=== PATIENT | female | born 1980 | race Caucasian/White ===

== ENCOUNTER 2024-06-17 20:06 | Inpatient (IN) ==
[2024-06-17 20:48] LABS: Appearance Urine Clear (Clear); Bacteria Urine Automated 2+ (None Seen); Bilirubin Urine Negative (Negative); Blood Urine Negative (Negative); Cast Urine Automated 0-2 /lpf (0-2); Color Urine Yellow; Glucose Urine UA Negative (Negative); Ketones Urine Negative (Negative); Leukocyte Esterase Urine 2+ (Negative); Nitrite Urine Negative (Negative); Protein Urine Negative (Negative); RBC Urine Automated 0-2 /hpf (0-2); Specific Gravity Urine 1.008 (1.000-1.030); Urobilinogen Urine Negative (Negative); WBC Urine Automated 21-50 /hpf (0-5)
[2024-06-17 20:50] LABS: Basophils # (auto) 0.07 K/uL (0.00-0.20); Eosinophils # (auto) 0.09 K/uL (0.00-0.50); Eosinophils % (auto) 1.3 %; Hematocrit (blood only) 36.7 % (37.0-47.0); Immature Granulocytes # (auto) 0.02 K/uL (0.01-0.20); Immature Granulocytes % (auto) 0.3 %; Lymphocytes # (auto) 2.22 K/uL (1.20-3.40); Lymphocytes % (auto) 32.5 %; Mean Corpuscular Hemoglobin 24.9 pg (25.0-34.0); Mean Corpuscular Hgb Conc 32.7 g/dL (32.0-36.0); Mean Corpuscular Volume 76.1 fL (80.0-100.0); Mean Platelet Volume 11.4 fL (9.4-12.4); Monocytes # (auto) 0.64 K/uL (0.11-0.59); Monocytes % (auto) 9.4 %; Neutrophils % (auto) 55.5 %; Platelet Count 234 K/uL (130-400); RDW Coefficient of Variation 14.6 % (11.5-14.5); RDW Standard Deviation 39.9 fL (36.4-46.3); Red Blood Count 4.82 M/uL (4.20-5.40); White Blood Count 6.84 K/ul (4.8-10.8)
--- NOTE | 2024-06-17 20:51 | Emergency Department Note ---
Impression & Plan Delusions, Acute UTI (urinary tract infection) ED Provider Note HISTORY OF PRESENT ILLNESS: Patient is a 43-year-old female presenting for mental health evaluation. Patient presents under 302 warrant. 302 was petitioned by one of the workers at the [facility] psychiatric unit. They state that the patient had called their facility and seem to be rambling and delusional. They had expressed passive suicidality stating that "they would not be around come June." On arrival to the ER, the patient does lack any sort of insight into why she is here and what is going on. She states that her parents 3 years ago and "I do not have anyone and I just want family." When asked about suicidal or homicidal ideation, she again repeats "I am all alone." She has very tangential thinking and is difficult to redirect. ROS: as above PHYSICAL EXAM: Constitutional: Patient appears in no acute distress. HENT: Head: Normocephalic and atraumatic. Eyes: EOMI, PERRL Mouth/Throat: Mucous membranes moist. Neck: Trachea midline. Neck supple. Musculoskeletal: No edema, tenderness or deformity noted. Skin: Warm and dry. No rash, erythema, pallor or cyanosis Psychiatric: Patient appears well groomed. Makes fair eye contact. Speech is normal volume and rate. Thought process is tangential and difficult to redirect. Neurological: Alert. CN II-XII grossly intact, moving all extremities equally and fully. MDM: - Vitals signs showed tachycardia. - History obtained via patient and 302 warrant. History as above. -After evaluating the patient, I did uphold the 302 warrant. She seems to lack insight into her medical condition at this time and makes passive threats about not being here after June. - Chronic conditions affecting care: Delusions - Differential diagnoses include, but are not limited to: Alcohol intoxication; drug intoxication; acute delusions; psychosis; UTI; electrolyte abnormality - External medical records reviewed. - Laboratory workup interpreted by myself showed normal WBC; stable electrolytes; negative hCG; normal TSH; negative alcohol/acetaminophen/salicylate levels - UA shows evidence of infection. Patient given 500 mg p.o. Keflex. She will need a continuation of Keflex 500 mg twice daily for the next 7 days. - COVID negative - UDS negative - Patient medically cleared. Bed search in process for inpatient psychiatric placement. - Patient was excepted to inpatient [facility] psychiatric unit, [address] [place] [address], for further evaluation and management. ASSESSMENT AND PLAN: Diagnosis: delusions; acute UTI Plan: admit to [address] [place] [address] Past Med/Surg History Problem List (Updated 06/17/24 @ 22:09 by Sylvia Rodriguez MD) Acute UTI (urinary tract infection) (Acute) Delusions (Acute) UTI (urinary tract infection) (Acute) Anxiety with depression (Acute) Insomnia (Acute) Tension headache (Acute) Social History Smoking Status: Never smoker Feels Safe at Home: Yes Gender Identity: Female Allergies Allergies Allergy/AdvReac Type Severity Reaction Status Date / Time No Known Allergies Allergy Verified 06/06/24 22:38 Home Meds Home Medications Medication Instructions Recorded Confirmed gabapentin 100 mg capsule 100 mg PO TID 06/17/24 06/17/24 hydroxyzine HCl 50 mg tablet 50 mg PO QID PRN Anxiety 06/17/24 06/17/24 lurasidone 20 mg tablet 20 mg PO PM 06/17/24 06/17/24 trazodone 50 mg tablet 50 mg PO HS PRN Insomnia 06/17/24 06/17/24 Results & Data (ED) Vital Signs Vital Signs - 24 hr 06/17/24 20:08 06/17/24 22:50 Temperature 37.2 C Temperature Source Oral Pulse Rate 91 H 74 Respiratory Rate 18 17 Respiratory Effort / Characteristics Non-Labored Respiratory Depth Normal Respiratory Pattern Regular Blood Pressure 130/82 128/80 Blood Pressure Mean 98 Blood Pressure Position Sitting Pulse Oximetry 98 97 Oxygen Delivery Method Room Air Room Air Sepsis Recent Fever Within 48 Hours No Sepsis New/Unexplained Change in Mental Status No Sepsis Action Taken by Nursing No Action Required Laboratory Data 06/17/24 20:27 06/17/24 20:27 Lab Results 06/17/24 Range/Units 20:27 WBC 6.84 (4.8-10.8) K/ul RBC 4.82 (4.20-5.40) M/uL Hgb 12.0 (12.0-16.0) g/dl Hct 36.7 L (37.0-47.0) % MCV 76.1 L (80.0-100.0) fL MCH 24.9 L (25.0-34.0) pg MCHC 32.7 (32.0-36.0) g/dL RDW Std Deviation 39.9 (36.4-46.3) fL RDW Coeff of Iveth 14.6 H (11.5-14.5) % Plt Count 234 (130-400) K/uL MPV 11.4 (9.4-12.4) fL Immature Gran % (Auto) 0.3 % Neut % (Auto) 55.5 % Lymph % (Auto) 32.5 % Gosper % (Auto) 9.4 % Eos % (Auto) 1.3 % Baso % (Auto) 1.0 % Neut # (Auto) 3.80 (1.40-6.50) K/uL Lymph # (Auto) 2.22 (1.20-3.40) K/uL Gosper # (Auto) 0.64 H (0.11-0.59) K/uL Eos # (Auto) 0.09 (0.00-0.50) K/uL Baso # (Auto) 0.07 (0.00-0.20) K/uL Immature Gran # (Auto) 0.02 (0.01-0.20) K/uL Sodium 139 (136-145) mmol/L Potassium 3.7 (3.5-5.1) mmol/L Chloride 104 (98-107) mmol/L Carbon Dioxide 29 (21-32) mmol/L Anion Gap 6 (3-11) BUN 11 (6-23) mg/dl Creatinine 0.63 (0.6-1.2) mg/dl Est Cr Clr Drug Dosing 127.4 ml/min eGFR 112.11 BUN/Creatinine Ratio 17.5 (10-20) Glucose 88 (70-99(Fasting)) mg/dl Calcium 9.6 (8.6-10.3) mg/dl Total Bilirubin 0.6 (0.2-1.0) mg/dl AST 18 (13-39) U/L ALT 18 (7-52) U/L Alkaline Phosphatase 47 (34-104) U/L Total Protein 8.0 (6.0-8.3) gm/dl Albumin 4.5 (3.4-5.0) gm/dl Globulin 3.5 (2.5-4.0) gm/dl Albumin/Globulin Ratio 1.3 (0.9-2) TSH 3.830 (0.300-4.500) uIu/ml HCG, Qual Negative (Negative) Urine Color Yellow Urine Appearance Clear (Clear) Urine pH 6.0 (4.5-7.5) Ur Specific Pierson 1.008 (1.000-1.030) Urine Protein Negative (Negative) Urine Glucose (UA) Negative (Negative) Urine Ketones Negative (Negative) Urine Blood Negative (Negative) Urine Nitrite Negative (Negative) Urine Bilirubin Negative (Negative) Urine Urobilinogen Negative (Negative) Ur Leukocyte Esterase 2+ H (Negative) Urine WBC (Auto) 21-50 H (0-5) /hpf Urine RBC (Auto) 0-2 (0-2) /hpf U Hyaline Cast (Auto) 0-2 (0-2) /lpf U Epithel Cells (Auto) 3-5 H (0-2) /hpf Urine Bacteria (Auto) 2+ H (None Seen) Salicylates < 3.0 L (3.0-30) mg/dl Urine Opiates Screen Neg (Neg) Ur Methadone, Qual Neg (Neg) Urine Fentanyl Screen Neg (Neg) Acetaminophen < 3 L (10-30) ug/ml Urine Barbiturates Neg (Neg) Ur Phencyclidine (PCP) Neg (Neg) U Amphetamin/Meth Scrn Neg (Neg) MDMA (Ecstasy) Screen Neg (Neg) U Benzodiazepines Scrn Neg (Neg) Ur Cocaine Metabolite Neg (Neg) U Marijuana (THC) Screen Neg (Neg) Ethyl Alcohol mg/dL < 10.0 (<10.0) mg/dl SARS-CoV-2, RNA, NAAT NEGATIVE (NEGATIVE) Administered Medications Discontinued Medications Cephalexin HCl (Cephalexin 250 Mg Cap) 500 mg PO NOW ONE Stop: 06/17/24 22:06 Last Admin: 06/17/24 22:41 Dose: 500 mg Documented By: KMS Discharge Plan Visit Data Chief Complaint: Mental Health Evaluation Stated Complaint: [facility] ED Provider: Sylvia Rodriguez Discharge Problem: Delusions, Acute UTI (urinary tract infection) Patient Disposition: Admitted As Inpatient Discharge Instructions Interventions: ED Discharge Assessment Last Done: 06/17/24 22:50 Forms Stand Alone Forms: My [facility], Suicide Prevention Resources Prescriptions Prescriptions: No Action gabapentin 100 mg Capsule 100 mg PO TID hydroxyzine HCl 50 mg Tablet 50 mg PO QID PRN (Reason: Anxiety) lurasidone 20 mg Tablet 20 mg PO PM Rx Instructions: must administer with food (at least 350 calories) trazodone 50 mg Tablet 50 mg PO HS PRN (Reason: Insomnia) Referrals Referrals: Robert Nolan MD [Primary Care Provider] -
[2024-06-17 20:58] LABS: Pregnancy Test, Serum Negative (Negative)
[2024-06-17 21:04] LABS: Albumin Globulin Ratio 1.3 (0.9-2); Albumin Level 4.5 gm/dl (3.4-5.0); BUN Creatinine Ratio 17.5 (10-20); Bilirubin,Total 0.6 mg/dl (0.2-1.0); Calcium 9.6 mg/dl (8.6-10.3); Creatinine Clr Calc Pharmacy 127.4 ml/min; Globulin 3.5 gm/dl (2.5-4.0); Potassium 3.7 mmol/L (3.5-5.1)
[2024-06-17 21:17] LABS: Acetaminophen < 3 ug/ml (10-30); Amphetamines+Metham, Urine Neg (Neg); Barbiturates, Urine Neg (Neg); Benzodiazepine, Urine Neg (Neg); Cocaine, Urine Neg (Neg); Fentanyl, Urine Neg (Neg); MDMA (Ecstacy), Urine Neg (Neg); Marijuana, Urine Neg (Neg); Methadone, Urine Neg (Neg); Opiate, Urine Neg (Neg); Phencyclidine, Urine Neg (Neg); Salicylate < 3.0 mg/dl (3.0-30)
[2024-06-17 21:18] LABS: Thyroid Stimulating Hormone 3.83 uIu/ml (0.300-4.500)
[2024-06-17] MEDS: cephALEXin 250 MG CAP PO ONE (22:41)
[2024-06-17] MEDS ORDERED: SODIUM CHLORIDE 0.65% NA SOLN 45 ML (OCEAN) PRN (23:06)
[2024-06-17] MEDS ORDERED: hydrOXYzine HCl 25 MG TAB PO PRN (23:06)
[2024-06-17] MEDS ORDERED: ACETAMINOPHEN 325 MG TAB PO PRN (23:06)
[2024-06-17] MEDS ORDERED: MAGNESIUM HYDROXIDE SUSP 30 ML UDC PO PRN (23:06)
[2024-06-17] MEDS ORDERED: ALUMINUM/MAGNESIUM SUSP 30 ML UDC PO PRN (23:06)
[2024-06-17] MEDS ORDERED: BISMUTH SUBSALICYLATE 262 MG CHEW PO PRN (23:06)
[2024-06-17] MEDS ORDERED: LORazepam 1 MG TAB PO PRN (23:10)
[2024-06-17] MEDS: OLANZapine 5 MG TABLET PO STA (23:28)
[2024-06-17] MEDS: hydrOXYzine HCl 25 MG TAB PO PRN (23:30)
[2024-06-18] MEDS: OLANZapine ZYDIS 5 MG ORALLY DIS. TAB PO SCH (09:43)
[2024-06-18] MEDS: cephALEXin 500 MG CAP PO SCH (09:43)
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
[2024-06-18] MEDS: ARIPiprazole 15 MG TAB PO SCH (12:07)
[2024-06-18] MEDS ORDERED: OLANZapine ZYDIS 5 MG ORALLY DIS. TAB PO PRN (12:55)
[2024-06-18] MEDS: LORazepam 1 MG TAB PO SCH (21:03)
[2024-06-19] MEDS ORDERED: ONDANSETRON 4 MG OD TAB PO PRN (11:47)
--- NOTE | 2024-06-19 14:39 | Psychiatric Progress Note ---
Date of Service June 19, 2024 Impression / Recommendations Impression Sruthi Anaya is a 43-year-old white female domiciled by self h/o bipolar 1 disorder who was brought in by police on a 302 warrant for making passive suicidal statements to an outside facility. Presented a disorganized and tangential though process, memory impairments, passive suicidal ideation, persecutory delusions. She was admitted on 06/17/24 23:01 on a 302 involuntary commitment for psychosis, markos. Presentation consistent with bipolar 1 disorder, mixed episode versus schizoaffective disorder bipolar type, body dysmorphia, uncomplicated UTI. Patient presents with decreased need for sleep, tangential and disorganized thought process with perseveration and flight of ideas, persecutory delusions, suicidal ideation. Chart review indicates historical bipolar diagnosis with past psychiatric hospitalization and stabilization on Abilify 25 mg daily. Concern for poor medication adherence and poor insight into her condition. A: Patient is tolerating Abilify well and we will plan to increase dose. Start trazodone for sleep. Patient continues to have excessive speech and is restless however improved from yesterday. Continues to perseverate about lack of community support and magnified feelings of misfortune and poor circumstance. Denies dysuria or pain on urination. Educated about benefits of long-acting injections and contemplative to start Abilify maintena. Patient denying UTI symptoms and concern for nausea s/e from antibiotic treatment; will limit treatment course to 3 full days. Overall, I spent a total of 40 minutes with this case including review of chart records, nursing report, review of lab work, direct evaluation of the patient at bedside, counseling the patient, multidisciplinary team meeting, orders, and documentation in the electronic health record. (1) Delusions: (2) Anxiety: (3) Insomnia: (4) Bipolar 1 disorder, mixed, severe: (5) Body dysmorphic disorder: (6) UTI (urinary tract infection): Plan 06/19/2024: Increase Abilify to 20 mg daily. Start trazodone 50 mg at bedtime. Fasting lipid profile and HgbA1C tomorrow AM. 06/18/2024:The patient was admitted to the [facility] ([facility]) on q15 min checks (behavioral with suicide precautions) for safety. The patient will participate in group, recreational, and milieu therapies and will be offered additional individual and family sessions as clinically appropriate. Continue Keflex 500 mg twice daily for 7 days Start aripiprazole 15 mg daily Start lorazepam 2 mg at bedtime Olanzapine 5 mg ODT every 6 hours as needed for agitation and lorazepam 1 mg p.o. 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 Presented a disorganized and tangential though process, memory impairments, passive suicidal ideation, persecutory delusions. She was admitted on 06/17/24 23:01 on a 302 involuntary commitment for psychosis, markos. Chief Complaint "Okay" Review of Systems Sleep Information Total Hours of Sleep: 7.5 Meal Information Percent Meal Consumed - Breakfast: 75 Percent Meal Consumed - Lunch: 100 Percent Meal Consumed - Dinner: 100 Subjective Subjective Patient was seen & assessed and interval progress reviewed with treatment team nursing and social work Nursing reports overnight patient has been disorganized with pressured speech. Unable to tolerate groups. Slept 7.5 hours. Patient's friend is taking care of her dog. Took a shower. Patient is worried about her dog but reports that her friend from the [employer] is helping her. She reports feeling rested. Tolerating Abilify well. Reports having recent bad luck and perseverates on this. Says the holidays are difficult because she does not have much family and parents are . Says groups have been helpful. Says that she was depressed in her 20s and then her mother had a traumatic fall and complications which she later from. Reports last psychiatric hospitalization went well and that her anxiety was more controlled by discharge. She denies SI and HI. Physical Exam Mental Examination Appearance: Unkempt Eye Contact: Fleeting Contact (direct at times) Motor Behavior: Restless Speech: Excessive, Repetitive and Perseverating Mood: Euthymic Affect: Congruent and Constricted Thought Process: Circumstantial, Disorganized and Perseveration Thought Content: Goal Oriented, Obsessional Thoughts and Preoccupation (focused on body perception, need for supports) Hallucinations: None Insight: Poor Judgement: Poor Vital Signs (Past 24 Hours) Last Vital Signs Temp 36.8 C 06/19/24 06:48 Pulse 87 06/19/24 06:49 Resp 16 06/19/24 06:48 BP 114/80 06/19/24 06:49 Pulse Ox 98 06/17/24 23:43 O2 Del Method Room Air 06/17/24 23:43 Results & Data ([facility]) Current Inpatient Medications Current Inpatient Medications: Current Inpatient Medications Acetaminophen (Acetaminophen 325 Mg Tab) 650 mg PO Q4H PRN PRN Reason: Headache or Minor Fever Stop: 07/17/24 23:05 Al Hydrox/Mg Hydrox/Simethicone (Aluminum/Magnesium Susp 30 Ml Udc) 30 ml PO Q4H PRN PRN Reason: GI Upset Stop: 07/17/24 23:05 Aripiprazole (Aripiprazole 10 Mg Tab) 20 mg PO DAILY LUANA Stop: 07/20/24 08:59 Bismuth Subsalicylate (Bismuth Subsalicylate 262 Mg Chew) 2 tab PO Q30M PRN PRN Reason: Loose Stool/Diarrhea Stop: 07/17/24 23:05 Cephalexin HCl (Cephalexin 500 Mg Cap) 500 mg PO BID LUANA; Protocol Stop: 06/20/24 20:59 Last Admin: 06/19/24 09:10 Dose: 500 mg Hydroxyzine HCl (Hydroxyzine Hcl 25 Mg Tab) 50 mg PO HSZ PRN PRN Reason: Insomnia Stop: 07/17/24 23:05 Last Admin: 06/17/24 23:30 Dose: 50 mg Hydroxyzine HCl (Hydroxyzine Hcl 25 Mg Tab) 25 mg PO Q4H PRN PRN Reason: Anxiety Stop: 07/17/24 23:05 Lorazepam (Lorazepam 1 Mg Tab) 1 mg PO Q6 PRN PRN Reason: Anxiety Stop: 07/17/24 23:09 Lorazepam (Lorazepam 1 Mg Tab) 2 mg PO HS LUANA Stop: 07/18/24 21:59 Last Admin: 06/18/24 21:03 Dose: 2 mg Magnesium Hydroxide (Magnesium Hydroxide Susp 30 Ml Udc) 30 ml PO DAILY PRN PRN Reason: Constipation Stop: 07/17/24 23:05 Olanzapine (Olanzapine Zydis 5 Mg Orally Dis. Tab) 5 mg PO Q6H PRN PRN Reason: agitation Stop: 07/18/24 08:59 Ondansetron HCl (Ondansetron 4 Mg Od Tab) 4 mg PO Q8H PRN PRN Reason: Nausea Stop: 07/19/24 11:46 Sodium Chloride (Sodium Chloride 0.65% Na Soln 45 Ml ([place])) 1 - 2 sprays NA PRN PRN PRN Reason: Nasal Dryness/Congestion Stop: 07/17/24 23:05 Trazodone HCl (Trazodone Hcl 50 Mg Tab) 50 mg PO HS LUANA Stop: 07/19/24 21:59 Mental Health & Subst Abuse Tx Psychiatrist Name of Psychiatrist: [facility] Comment: Psychiatry appt will be scheduled after intake is completed on 06/23 Therapist Name of Therapist: Denice therapist Lizzette (intake) Therapist's Date of Therapist Appointment: 06/23/24 - Sunday Time of Therapist Appointment: 11AM Therapy Appointment Comment: In person - [id number] [facility] [id number] Post Discharge Appointments Primary Care Physician Name Of Family Doctor/PCP: Dr. Robert Haider Partial or Psych Rehab Name of Partial or Psych Rehab: Crisis airborne and air delivery specialist Phone Number of Partial or Psych Rehab: [phone] Partial or Psych Rehab Appointment Comment: emergency medicine specialist will contact you for scheduling post discharge (3) Insomnia Insomnia type: unspecified Qualified Code(s): G47.00 - Insomnia, unspecified (6) UTI (urinary tract infection) Hematuria presence: without hematuria Urinary tract infection type: site unspecified Qualified Code(s): N39.0 - Urinary tract infection, site not specified
[2024-06-19] MEDS: traZODone HCL 50 MG TAB PO SCH (21:09)
[2024-06-20 09:04] LABS: Chol HDL Ratio 2.5 (0-5)
[2024-06-20] MEDS: ARIPiprazole 10 MG TAB PO SCH (09:07)
[2024-06-20 10:00] LABS: Estimated Average Glucose 108 mg/dl; Hemoglobin A1C 5.4 % (4.5-5.6)
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
[2024-06-20] MEDS: LORazepam 0.5 MG TAB PO PRN (18:25)
[2024-06-20] MEDS: LORazepam 1 MG TAB PO SCH (21:07)
--- NOTE | 2024-06-21 09:30 | Psychiatric Progress Note ---
Date of Service June 21, 2024 Impression / Recommendations Impression Sruthi Anaya is a 43-year-old white female domiciled by self h/o bipolar 1 disorder who was brought in by police on a 302 warrant for making passive suicidal statements to an outside facility. Presented a disorganized and tangential though process, memory impairments, passive suicidal ideation, persecutory delusions. She was admitted on 06/17/24 23:01 on a 302 involuntary commitment for psychosis, markos. Presentation consistent with bipolar 1 disorder, mixed episode versus schizoaffective disorder bipolar type, body dysmorphia, uncomplicated UTI. Patient presents with decreased need for sleep, tangential and disorganized thought process with perseveration and flight of ideas, persecutory delusions, suicidal ideation. Chart review indicates historical bipolar diagnosis with past psychiatric hospitalization and stabilization on Abilify 25 mg daily. Concern for poor medication adherence and poor insight into her condition. A:Markos lessening, slept well overnight and tolerating medications well. Circumstantial thought process and speech is slightly fast but not pressured, no evidence for psychomotor activation, delusions, grandiosity or paranoia. She declines option for [facility]NA[facility] but is agreeable to continuing with abilify po. Agree with previous provider that she will not meet 303 criteria and thus will be discharged tomorrow prior to 302 expiring, she declines option for further voluntary treatment, desires to get back to her home and to be with her dog and she has had only acquaintances caring for her dog. Overall, I spent a total of 45 minutes on this case including meeting with the patient, reviewing the chart, nursing report, multidisciplinary team meeting, orders, and documentation.. (1) Bipolar 1 disorder, mixed, severe: (2) Anxiety: (3) Body dysmorphic disorder: Plan 06/21/2024: Continue with current medications and tx plan. 06/20/2024: Decrease lorazepam to 1 mg at bedtime. 06/19/2024: Increase Abilify to 20 mg daily. Start trazodone 50 mg at bedtime. Fasting lipid profile and HgbA1C tomorrow AM. 06/18/2024:The patient was admitted to the [facility] ([facility] mental [facility] unit) on q15 min checks (behavioral with suicide precautions) for safety. The patient will participate in group, recreational, and milieu therapies and will be offered additional individual and family sessions as clinically appropri ate. Continue Keflex 500 mg twice daily for 7 days Start aripiprazole 15 mg daily Start lorazepam 2 mg at bedtime Olanzapine 5 mg ODT every 6 hours as needed for agitation and lorazepam 1 mg p.o. every 6 hours for anxiety Inventory Assets Strengths: independent, assertive Needs: medication adherence, improved insight Suicide Risk Level Suicide Risk Level: Moderate (q15 min suicide checks) (mixed mood episode but denies SI and future focused, feels safe in the hospital and feels able to ask for support ) Risk Factors Assessment Male: No : Yes Do You Have Access To A Gun?: No Health Problems: No Mental Health Diagnoses: Yes Substance Use Disorders: No Previous Attempt: No Family History of Suicide: No Previous Psychiatric Hospitalization: Yes Hopelessness: No Protective Factors Assessment Spiritism Beliefs: No : No Responsible for Young Children: No 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 Presented a disorganized and tangential though process, memory impairments, passive suicidal ideation, persecutory delusions. She was admitted on 06/17/24 23:01 on a 302 involuntary commitment for psychosis, markos. Chief Complaint "I want to work on building realEnforcer eCoachinghips". Review of Systems Sleep Information Total Hours of Sleep: 8 Sleep Comments: HS Ativan and Trazadone Meal Information Percent Meal Consumed - Breakfast: 90 Percent Meal Consumed - Lunch: 100 Percent Meal Consumed - Dinner: 75 Subjective Subjective Patient was seen & assessed and interval progress reviewed with treatment team nursing and social work. Sleeping well, 8 hours last night. Attending groups, attending to all self-care needs, eating well.Still circumstantial at times. Reports mood as stable today, planning to take a shower. Plans to meet with crisis peer support today. Eager to get back home to see her dog, wants to leave tomorrow. Sleeping well and denies any medication side effects, reviewed potential for metabolic side effects with Abilify as she recalled having some bloating in the past. She wonders about ways to increase happiness, reviewed PERMA and provided with resource about this, discussed gratitude and CBT cycle. Physical Exam Psychiatric Orientation: alert and oriented x 3 Apperance: appropriately dressed and appropriately groomed Eye Contact: good eye contact Motor Behavior: no abnormal motor movements Speech: no pressured speech, no loud speech and + abnormal rate/rhythm/volume of speech (slightly fast) Affect: euthymic affect Mood: + depressed mood; no anxious mood Thought Process: + circumstantial thought process Thought Content: reality based without delusions Suicidal Thoughts: denies suicidal thoughts Homicidal Thoughts: denies homicidal thoughts Hallucinations: no auditory hallucinations and no visual hallucinations Insight: + fair insight Judgment: + fair judgement Vital Signs (Past 24 Hours) Last Vital Signs Temp 37.0 C 06/21/24 06:54 Pulse 90 06/21/24 06:54 Resp 16 06/21/24 06:54 BP 119/82 06/21/24 06:56 Pulse Ox 98 06/21/24 06:54 O2 Del Method Room Air 06/21/24 06:54 Results & Data ([facility]) Laboratory Results Laboratory Results - last 24 hr 06/20/24 08:30 Estimat Average Glucose 108 Hemoglobin A1c 5.4 Current Inpatient Medications Current Inpatient Medications: Current Inpatient Medications Acetaminophen (Acetaminophen 325 Mg Tab) 650 mg PO Q4H PRN PRN Reason: Headache or Minor Fever Stop: 07/17/24 23:05 Al Hydrox/Mg Hydrox/Simethicone (Aluminum/Magnesium Susp 30 Ml Udc) 30 ml PO Q4H PRN PRN Reason: GI Upset Stop: 07/17/24 23:05 Aripiprazole (Aripiprazole 10 Mg Tab) 20 mg PO DAILY LUANA Stop: 07/20/24 08:59 Last Admin: 06/21/24 08:54 Dose: 20 mg Bismuth Subsalicylate (Bismuth Subsalicylate 262 Mg Chew) 2 tab PO Q30M PRN PRN Reason: Loose Stool/Diarrhea Stop: 07/17/24 23:05 Hydroxyzine HCl (Hydroxyzine Hcl 25 Mg Tab) 50 mg PO HSZ PRN PRN Reason: Insomnia Stop: 07/17/24 23:05 Last Admin: 06/17/24 23:30 Dose: 50 mg Hydroxyzine HCl (Hydroxyzine Hcl 25 Mg Tab) 25 mg PO Q4H PRN PRN Reason: Anxiety Stop: 07/17/24 23:05 Lorazepam (Lorazepam 1 Mg Tab) 1 mg PO HS LUANA Stop: 07/20/24 21:59 Last Admin: 06/20/24 21:07 Dose: 1 mg Lorazepam (Lorazepam 0.5 Mg Tab) 0.5 mg PO Q6 PRN PRN Reason: Anxiety Stop: 07/17/24 23:09 Last Admin: 06/20/24 18:25 Dose: 0.5 mg Magnesium Hydroxide (Magnesium Hydroxide Susp 30 Ml Udc) 30 ml PO DAILY PRN PRN Reason: Constipation Stop: 07/17/24 23:05 Olanzapine (Olanzapine Zydis 5 Mg Orally Dis. Tab) 5 mg PO Q6H PRN PRN Reason: agitation Stop: 07/18/24 08:59 Ondansetron HCl (Ondansetron 4 Mg Od Tab) 4 mg PO Q8H PRN PRN Reason: Nausea Stop: 07/19/24 11:46 Sodium Chloride (Sodium Chloride 0.65% Na Soln 45 Ml ([place])) 1 - 2 sprays NA PRN PRN PRN Reason: Nasal Dryness/Congestion Stop: 07/17/24 23:05 Trazodone HCl (Trazodone Hcl 50 Mg Tab) 50 mg PO HS LUANA Stop: 07/19/24 21:59 Last Admin: 06/20/24 21:07 Dose: 50 mg Mental Health & Subst Abuse Tx Psychiatrist Name of Psychiatrist: [facility] Comment: Psychiatry appt will be scheduled after intake is completed on 06/23 Therapist Name of Therapist: Denice therapist Lizzette (intake) Therapist's Date of Therapist Appointment: 06/23/24 - Sunday Time of Therapist Appointment: 11AM Therapy Appointment Comment: In person - [id number] [facility] [address] Post Discharge Appointments Primary Care Physician Name Of Family Doctor/PCP: Dr. Robert Haider Partial or Psych Rehab Name of Partial or Psych Rehab: Crisis water pollution specialist Phone Number of Partial or Psych Rehab: [phone] Partial or Psych Rehab Appointment Comment: surgical instrument repair specialist will contact you for scheduling post discharge
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
== END 2024-06-22 11:50 | disposition home or self-care (01) | DRG 885 ==
LOC: ED 20:06 → 3S 22:50

== ENCOUNTER 2024-08-26 14:21 | Inpatient (IN) ==
[2024-08-26 14:53] LABS: Appearance Urine Clear (Clear); Bacteria Urine Automated None Seen (None Seen); Bilirubin Urine Negative (Negative); Blood Urine Negative (Negative); Cast Urine Automated 0-2 /lpf (0-2); Color Urine Yellow; Epithelial Cell Urine Auto 0-2 /hpf (0-2); Glucose Urine UA Negative (Negative); Ketones Urine Negative (Negative); Leukocyte Esterase Urine Trace (Negative); Nitrite Urine Negative (Negative); Protein Urine Negative (Negative); RBC Urine Automated 0-2 /hpf (0-2); Specific Gravity Urine 1.006 (1.000-1.030); Urobilinogen Urine Negative (Negative); WBC Urine Automated 0-5 /hpf (0-5); pH Urine 5.5 (4.5-7.5)
[2024-08-26 14:57] LABS: Basophils # (auto) 0.05 K/uL (0.00-0.20); Basophils % (auto) 0.7 %; Eosinophils # (auto) 0.07 K/uL (0.00-0.50); Hematocrit (blood only) 37.9 % (37.0-47.0); Hemoglobin 12.6 g/dl (12.0-16.0); Immature Granulocytes # (auto) 0.02 K/uL (0.01-0.20); Immature Granulocytes % (auto) 0.3 %; Lymphocytes # (auto) 1.65 K/uL (1.20-3.40); Lymphocytes % (auto) 23.6 %; Mean Corpuscular Hemoglobin 25.5 pg (25.0-34.0); Mean Corpuscular Hgb Conc 33.2 g/dL (32.0-36.0); Mean Corpuscular Volume 76.7 fL (80.0-100.0); Mean Platelet Volume 11.3 fL (9.4-12.4); Monocytes # (auto) 0.65 K/uL (0.11-0.59); Monocytes % (auto) 9.3 %; Neutrophils # (auto) 4.54 K/uL (1.40-6.50); Neutrophils % (auto) 65.1 %; Platelet Count 273 K/uL (130-400); RDW Standard Deviation 41.9 fL (36.4-46.3); Red Blood Count 4.94 M/uL (4.20-5.40); White Blood Count 6.98 K/ul (4.8-10.8)
[2024-08-26 15:15] LABS: Alanine Aminotransferase 38 U/L (7-52); Albumin Globulin Ratio 1.5 (0.9-2); Albumin Level 4.6 gm/dl (3.4-5.0); Alkaline Phosphatase 47 U/L (34-104); Anion Gap 8 (3-11); Aspartate Aminotransferase 34 U/L (13-39); Bilirubin,Total 0.4 mg/dl (0.2-1.0); Blood Urea Nitrogen 13 mg/dl (6-23); Calcium 9.2 mg/dl (8.6-10.3); Carbon Dioxide 26 mmol/L (21-32); Chloride 101 mmol/L (98-107); Glucose 81 mg/dl (70-99(Fasting)); Potassium 3.6 mmol/L (3.5-5.1); Sodium 135 mmol/L (136-145); Total Protein 7.6 gm/dl (6.0-8.3)
[2024-08-26 15:30] LABS: Thyroid Stimulating Hormone 1.978 uIu/ml (0.300-4.500)
[2024-08-26 15:51] LABS: Acetaminophen < 3 ug/ml (10-30); Salicylate < 3.0 mg/dl (3.0-30)
[2024-08-26 15:57] LABS: Amphetamines+Metham, Urine Neg (Neg); Barbiturates, Urine Neg (Neg); Benzodiazepine, Urine Neg (Neg); Cocaine, Urine Neg (Neg); Fentanyl, Urine Neg (Neg); MDMA (Ecstacy), Urine Neg (Neg); Marijuana, Urine Neg (Neg); Methadone, Urine Neg (Neg); Opiate, Urine Neg (Neg); Phencyclidine, Urine Neg (Neg)
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
[2024-08-26] MEDS ORDERED: SODIUM CHLORIDE 0.65% NA SOLN 45 ML (OCEAN) PRN (18:16)
[2024-08-26] MEDS ORDERED: MAGNESIUM HYDROXIDE SUSP 30 ML UDC PO PRN (18:16)
[2024-08-26] MEDS ORDERED: hydrOXYzine HCl 25 MG TAB PO PRN ×2 (18:16)
[2024-08-26] MEDS ORDERED: ALUMINUM/MAGNESIUM SUSP 30 ML UDC PO PRN (18:16)
[2024-08-26] MEDS ORDERED: BISMUTH SUBSALICYLATE 262 MG CHEW PO PRN (18:16)
[2024-08-26] MEDS ORDERED: LORazepam 1 MG TAB PO PRN (19:59)
[2024-08-26] MEDS ORDERED: OLANZapine ZYDIS 5 MG ORALLY DIS. TAB PO PRN (19:59)
[2024-08-26] MEDS: traZODone HCL 50 MG TAB PO SCH (21:14)
[2024-08-27] MEDS: lamoTRIgine 25 MG TAB PO SCH (15:21)
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
[2024-08-27] MEDS: ACETAMINOPHEN 325 MG TAB PO PRN (17:55)
[2024-08-27] MEDS: cloNIDine HCL 0.1 MG TAB PO SCH (21:06)
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
--- NOTE | 2024-08-30 10:17 | Psychiatric Progress Note ---
Date of Service August 30, 2024 Impression / Recommendations Impression 44-year-old woman with extensive psychiatric history significant for multiple lifetime traumas. Onset of mental health symptoms in her early - mid 20s, with historic diagnoses including Schizoaffective Disorder, Bipolar type vs, Bipolar Disorder vs , depression. Academic and early work history significant for excellent performance despite turbulent childhood, but patient has struggled to find and retain employment commensurate with her ability and education since her mid-late 20s. Other diagnoses include OCD, ASD. Since her early 40s, she has had over 30 hospitalizations typically presenting with worsening depression and suicidal ideation in the context of unresolved grief and loss regarding parents' deaths and being forced from family home. Describes an "incredibly bad life" since mother's passing 3 years ago and attributes mental decline to mistreatment by others and lack of social support. She reports past arrest being an added stressor although charges were dismissed. Patient lives alone, works as a home health aide, and is socially isolated. She expresses a strong desire for a and family as a way to provide life meaning and stability. Diagnostically consistent with unspecified mood disorder with differential including Schizoaffective Disorder Bipolar Type current depressive episode/mixed episode vs Bipolar Disorder vs MDD with Psychosis vs. Complicated bereavement. Significant lifetime trauma, although not currently meeting criteria for PTSD. By history, Autistic disorder (high-functioning Autism/Asperger's). By history, ADHD, OCD, Body Dysmorphic Disorder. A: Mood improving, though still focused at times on ongoing stressors. Processed ways she can try to increase her support network and establish more meaningful social connections. Tolerating medications without side effects. Continues to deny SI. Plan for discharge tomorrow before 302 expires, she is declining to sign in for any additional voluntary treatment, doesn't meet 303 criteria as denies SI/HI and no evidence for psychosis at this point. Overall, I spent a total of 35 minutes on this case including meeting with the patient, reviewing the chart, nursing report, multidisciplinary team meeting, orders, and documentation. (1) Bipolar 1 disorder, mixed, severe: (2) Anxiety: (3) Autism spectrum disorder: Plan 08/30/2024: -Continue current medications and tx plan. 08/29/24: Continue current medication at current doses. Continue to monitor for rash. ELOS 2-4 days. 08/28/24: Continue current medication: Olanzapine 10mg qhs, Lamictal 25mg daily, Clonidine 0.1mg bid for ADHD, impulsivity. 08/27/24: The patient was admitted to the [facility] ([facility]) on q15 min checks (behavioral with suicide precautions) for safety. The patient will participate in group, recreational, and milieu therapies and will be offered additional individual and family sessions as clinically appropriate. Medications: Increase olanzapine to 10mg qhs, Trazodone 50mg qhs. Discussed medication treatment options in detail. Discussed risks, benefits and alternatives. Patient would like to start and consented to Lamictal for mood stabilization. Reviewed side effects including but not limited to Lanier- Schuyler' syndrome, ataxia, diplopia, headaches etc. Start Lamictal 25mg daily for mood stabilization.Pt does not recall prior trials of this medication. Does not recall trials of Depakote, [place]. Hold fluoxetine 60mg daily, Mirtazapine 15mg qhs given history of mood cycling. Continue clonidine 0.1mg and increase to bid for presumed ADHD, impulsivity. Reviewed information from recent treating providers and past records Encourage participation in unit groups and individual therapy to process grief/loss Assess interest in pursuing psychological testing as outpatient to clarify diagnosis Provide resources for social activities, volunteering to facilitate community engagement. Suicide Risk Level Suicide Risk Level: Moderate (q15 min suicide checks) (SI prior to admission but now reports improvement in mood, denies SI, future-focused ) Risk Factors Assessment Male: No : Yes Do You Have Access To A Gun?: No Mental Health Diagnoses: Yes Substance Use Disorders: No Previous Attempt: No Family History of Suicide: Yes Previous Psychiatric Hospitalization: Yes Hopelessness: No Protective Factors Assessment Pent[employer]al Beliefs: No : No Responsible for Young Children: No Employed: Yes Stable Relationships: No Supportive Family: No Good Rapport with Provider: Yes Interval History Identifying Information 44-year-old woman with a history of trauma, bipolar/Schizoaffective disorder, body dysmorphic disorder and OCD (by history), with over 30 inpt psych hospitalizations presenting with worsening depression and suicidal ideation in the context of unresolved grief and loss regarding parents' deaths and being forced from family home. Chief Complaint "I need to find a ". Review of Systems Sleep Information Total Hours of Sleep: 8.75 Meal Information Percent Meal Consumed - Breakfast: 100 Percent Meal Consumed - Lunch: 90 Percent Meal Consumed - Dinner: 100 Subjective Subjective Patient was seen & assessed and interval progress reviewed with nursing. Sleeping well, attending groups, showered this morning. Discharge focused. Today continues to deny SI. Focused on challenges she's faced since of her mother and feels she has no good supports. Discussed ways she could try to increase her support network among her relatives and meeting new people. Discussed ways she has been trying to meet a romantic partner. Remains focused on desire to leave tomorrow so her dog doesn't have to remain at the [employer] office. She denies any medication issues. Physical Exam Psychiatric A+Ox3, euthymic affect Orientation: alert, oriented x 3 and cooperative Apperance: appropriately dressed, appropriately groomed and appeared stated age Eye Contact: good eye contact Motor Behavior: steady gait and station and no abnormal motor movements Speech: normal rate/rhythm/volume of speech Affect: + constricted affect Mood: + anxious mood Thought Process: + circumstantial thought process Thought Content: + preoccupation Suicidal Thoughts: denies suicidal thoughts, denies suicidal plan and denies suicidal intent Homicidal Thoughts: denies homicidal thoughts, denies homicidal plan and denies homicidal intent Cognition: recent memory grossly intact, remote memory grossly intact and attention grossly intact Estimated Intelligence: consistent with education level Insight: + fair insight Judgment: + limited judgement Vital Signs (Past 24 Hours) Last Vital Signs Temp 36.4 C 08/30/24 06:00 Pulse 83 08/30/24 06:16 Resp 17 08/30/24 06:00 BP 101/68 08/30/24 06:16 Pulse Ox 97 08/30/24 06:00 O2 Del Method Room Air 08/30/24 06:00 Results & Data ([facility]) Current Inpatient Medications Current Inpatient Medications: Current Inpatient Medications Acetaminophen (Acetaminophen 325 Mg Tab) 650 mg PO Q4H PRN PRN Reason: Headache or Minor Fever Stop: 09/25/24 18:15 Last Admin: 08/30/24 09:12 Dose: 650 mg Al Hydrox/Mg Hydrox/Simethicone (Aluminum/Magnesium Susp 30 Ml Udc) 30 ml PO Q4H PRN PRN Reason: GI Upset Stop: 09/25/24 18:15 Bismuth Subsalicylate (Bismuth Subsalicylate 262 Mg Chew) 2 tab PO Q30M PRN PRN Reason: Loose Stool/Diarrhea Stop: 09/25/24 18:15 Clonidine HCl (Clonidine Hcl 0.1 Mg Tab) 0.1 mg PO BID LUANA Stop: 09/26/24 20:59 Last Admin: 08/30/24 08:41 Dose: 0.1 mg Hydroxyzine HCl (Hydroxyzine Hcl 25 Mg Tab) 50 mg PO HSZ PRN PRN Reason: Insomnia Stop: 09/25/24 18:15 Hydroxyzine HCl (Hydroxyzine Hcl 25 Mg Tab) 25 mg PO Q4H PRN PRN Reason: Anxiety Stop: 09/25/24 18:15 Lamotrigine (Lamotrigine 25 Mg Tab) 25 mg PO QAM LUANA; Protocol Stop: 09/26/24 14:14 Last Admin: 08/30/24 08:40 Dose: 25 mg Lorazepam (Lorazepam 1 Mg Tab) 1 mg PO Q6 PRN PRN Reason: Anxiety Stop: 09/25/24 19:58 Magnesium Hydroxide (Magnesium Hydroxide Susp 30 Ml Udc) 30 ml PO DAILY PRN PRN Reason: Constipation Stop: 09/25/24 18:15 Olanzapine (Olanzapine Zydis 5 Mg Orally Dis. Tab) 5 mg PO Q6 PRN PRN Reason: Agitation Stop: 09/25/24 19:58 Olanzapine (Olanzapine Zydis 10 Mg Orally Dis. Tab) 10 mg PO HS LUANA Stop: 09/26/24 20:59 Last Admin: 08/29/24 21:15 Dose: 10 mg Sodium Chloride (Sodium Chloride 0.65% Na Soln 45 Ml ([place])) 1 - 2 sprays NA PRN PRN PRN Reason: Nasal Dryness/Congestion Stop: 09/25/24 18:15 Trazodone HCl (Trazodone Hcl 50 Mg Tab) 50 mg PO HS LUANA Stop: 09/25/24 21:59 Last Admin: 08/29/24 21:15 Dose: 50 mg Mental Health & Subst Abuse Tx Psychiatrist Name of Psychiatrist: Cam Levine Psychiatrist's Date Of Appointment With Psychiatric Provider: 09/09/24 Time of Appointment with Psychiatrist: 1:20 pm Therapist Name of Therapist: not established with anyone Therapist's Post Discharge Appointments Primary Care Physician Name Of Family Doctor/PCP: Robert Haider MD Primary Care Contact Information [place] Discharge [facility] [facility] [place] [facility] [address]
--- NOTE | 2024-08-31 09:03 | Discharge Summary ---
Date of Service August 31, 2024 History of Present Illness Background: 44-year-old female with history of bipolar disorder, possible OCD, ADHD, autism spectrum disorder, and depression. Lives alone in [place], [place]. Referred by outpatient psychiatrist on a 302 due to concerns about suicidal thoughts.She has had over 30 psychiatric admissions over the past 3 years, most recently to [facility] in June 2024. Last admission at this facility was 06/18-06/22/2024. Per her faxed records from [facility], she was seen there 08/21/24. Current meds are Clonidine 0.1mg qhs, Trazodone 100mg qhs, Prozav 60mg daily and Olanzapine 10mg qhs. She was recently on Abilify 25mg but this was recently cross-titrated with Olanzapine. 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 She endorses poor sleep, low energy, feelings of humiliation and shame related to conflicts with her mother's mcfp and being "wrongly arrested." She endorses chronic suicidal thoughts related to her desire for a , but denies prior attempts, acts in furtherance, plan or intent, stating "I just want my family back." She was very tangential and could not provide a detailed/coherent account of why she was sent in on a 302. She perseverated on "having money". Past Medical History: History of Ablation procedure on varicose veins in mid- 20s. Hymenectomy at age 22. A physical exam was performed in the ED for the purposes of medical clearance. I accept that physical as correct and adequate for the purposes of the inpatient physical exam. Lab findings remarkable for borderline low Na 135, Lipid profile wnl 07/03/24. Physical Exam Vital Signs (Past 24 Hours) Last Vital Signs Temp 36.9 C 08/31/24 08:49 Pulse 77 08/31/24 08:49 Resp 16 08/31/24 08:49 BP 92/57 L 08/31/24 08:49 Pulse Ox 98 08/31/24 08:49 O2 Del Method Room Air 08/31/24 06:00 Principal Diagnosis Bipolar Affective Disorder, mixed episode Psychiatric Data See daily stay summary. In short, patient was engaged with the social/therapeutic milieu of the unit, safety was maintained and the patient was cooperative with care. Medication changes included discontinuation of fluoxetine and mirtazapine due to mood cycling, initiation of lamictal 25mg daily for mood stabilization and increasing olanzapine and they tolerated this well. She was discharged just prior to the expiration of her 302 commitment, she was not felt to meet 303 commitment criteria. She declined a support session; safety plan was completed prior to discharge. They participated in safety planning and in discussions about ways to seek support and recognizing warning signs and utilizing coping skills. Reviewed ways to have their safety plan and contacts easily available should thoughts of SI re-emerge in the future. Reviewed importance of seeking emergency care should SI intensify, worsen or should they feel unsafe in the future which they agree to do. On the day of discharge they stated their mood was "[]" and remained future- oriented including [spending time with , relaxing] and engaging in aftercare appointments for psychiatry, therapy and [employer] student care and advocacy. They participated in safety planning and in discussions about ways to seek support and recognizing warning signs and utilizing coping skills. Reviewed ways to have their safety plan and contacts easily available should thoughts of SI re-emerge in the future. Reviewed importance of seeking emergency care should SI intensify, worsen or should they feel unsafe in the future which they agree to do. On the day of discharge they stated their mood was "good" and remained future-oriented including seeing her dog, trying to date and engaging in aftercare appointment for psychiatry. Day of Discharge Assessment Today the patient voices readiness for discharge. They note improvement in mood and anxiety. They deny thoughts of harm to self or others. Thoughts are organized and they are clinically improved from admission. There is no evidence of psychosis. They improved in the hospital with support and medication adjustments. They agree to take medications as prescribed and keep follow-up appointments. At the time of the discharge they are deemed to be stable and appropriate for outpatient level of care. They are not deemed to be at imminent risk of harm to self or others. They are aware of emergency and crisis services. Knows to call 911 or go to nearest emergency care center if in a crisis which cannot be handled as an outpatient. Suicide risk assessment: Acute risk is low given improvement in mood and denial of SI, lack of access to lethal means, hopefulness and improvement in psychosis. Chronic risk is moderate to high given some non-modifiable risk factors: psychiatric co-morbid diagnoses, periods of impulsivity, prior psychiatric hospitalizations, limited social support, mood disorder, childhood trauma but also with protective factors in cluding sense of responsibility to extended family, daughter and social supports, outpatient care in place, some positive coping skills, positive problem solving. Counseled on ways to reduce acute and chronic risk including engaging with outpatient providers, using safety plan if needed, utilizing supports, taking medication, and using coping skills. Modifiable risk factors of mood symptoms, SI and depression were addressed during hospitalization through development of new coping skills, safety planning, and medication adjustments. Discharge physical exam: See admission H&P, MSE per above and day of discharge summary. Overall, I spent a total of 35 minutes on this case including meeting with the patient, reviewing the chart, nursing report, multidisciplinary team meeting, discharge orders, anticipatory planning, safety planning, risk assessment and documentation. Transition of Care Transition Of Care Record: was reviewed with the patient Advance Directives Advance Directives Information Provided: Yes Advance Directives: No Mental Health Advance Directive: No Advance Directives on File: No Living Will: No Power of Director Orange: No Advance Directives Reason:: Declines as Mental Health Visit. Suicide Risk Level Suicide Risk Level Comments: Acute risk is low as denies SI, see further assessment above Risk Factors Assessment Male: No : Yes Do You Have Access To A Gun?: No Health Problems: No Mental Health Diagnoses: Yes Substance Use Disorders: No Previous Attempt: No Family History of Suicide: Yes Previous Psychiatric Hospitalization: Yes Hopelessness: No Protective Factors Assessment Hoahaoism Beliefs: No : No Responsible for Young Children: No Stable Relationships: No Supportive Family: No Good Rapport with Provider: Yes Discharge Data Lab Results 08/26/24 08/26/24 08/26/24 14:24 14:26 14:30 WBC 6.98 RBC 4.94 Hgb 12.6 Hct 37.9 MCV 76.7 L MCH 25.5 MCHC 33.2 RDW Std Deviation 41.9 RDW Coeff of Iveth 15.0 H Plt Count 273 MPV 11.3 Immature Gran % (Auto) 0.3 Neut % (Auto) 65.1 Lymph % (Auto) 23.6 [place] % (Auto) 9.3 Eos % (Auto) 1.0 Baso % (Auto) 0.7 Neut # (Auto) 4.54 Lymph # (Auto) 1.65 [place] # (Auto) 0.65 H Eos # (Auto) 0.07 Baso # (Auto) 0.05 Immature Gran # (Auto) 0.02 Sodium 135 L Potassium 3.6 Chloride 101 Carbon Dioxide 26 Anion Gap 8 BUN 13 Creatinine 0.81 Est Cr Clr Drug Dosing Not Reportable eGFR 91.17 BUN/Creatinine Ratio 16.0 Glucose 81 Calcium 9.2 Total Bilirubin 0.4 AST 34 ALT 38 Alkaline Phosphatase 47 Total Protein 7.6 Albumin 4.6 Globulin 3.0 Albumin/Globulin Ratio 1.5 TSH 1.978 Urine Color Yellow Urine Appearance Clear Urine pH 5.5 POC Urine pH Cancelled Ur Specific [place] 1.006 Urine Protein Negative POC Urine Protein Cancelled Urine Glucose (UA) Negative POC Ur Glucose (UA) Cancelled Urine Ketones Negative POC Urine Ketones Cancelled Urine Blood Negative POC Urine Blood Cancelled Urine Nitrite Negative POC Urine Nitrite Cancelled Urine Bilirubin Negative POC Urine Bilirubin Cancelled Urine Urobilinogen Negative POC Urine Urobilinogen Cancelled Ur Leukocyte Esterase Trace H POC U Leukocyte Esteras Cancelled Urine WBC (Auto) 0-5 Urine RBC (Auto) 0-2 U Hyaline Cast (Auto) 0-2 U Epithel Cells (Auto) 0-2 Urine Bacteria (Auto) None Seen POC Ur Test Cancelled Salicylates < 3.0 L Urine Opiates Screen Neg Ur Methadone, Qual Neg Urine Fentanyl Screen Neg Acetaminophen < 3 L Urine Barbiturates Neg Ur Phencyclidine (PCP) Neg U Amphetamin/Meth Scrn Neg MDMA (Ecstasy) Screen Neg U Benzodiazepines Scrn Neg Ur Cocaine Metabolite Neg U Marijuana (THC) Screen Neg Ethyl Alcohol mg/dL < 10.0 SARS-CoV-2, RNA, NAAT NEGATIVE Hospital Course (1) Bipolar 1 disorder, mixed, severe: (2) Anxiety: (3) Autism spectrum disorder: (4) Bipolar 1 disorder, mixed: (5) LUIS (generalized anxiety disorder): Plan 08/30/2024: -Continue current medications and tx plan. 08/29/24: Continue current medication at current doses. Continue to monitor for rash. ELOS 2-4 days. 08/28/24: Continue current medication: Olanzapine 10mg qhs, Lamictal 25mg daily, Clonidine 0.1mg bid for ADHD, impulsivity. 08/27/24: The patient was admitted to the [facility] ([facility] inpatient mental health unit) on q15 min checks (behavioral with suicide precautions) for safety. The patient will participate in group, recreational, and milieu therapies and will be offered additional individual and family sessions as clinically appropriate. Medications: Increase olanzapine to 10mg qhs, Trazodone 50mg qhs. Discussed medication treatment options in detail. Discussed risks, benefits and alternatives. Patient would like to start and consented to Lamictal for mood stabilization. Reviewed side effects including but not limited to Lanier- Schuyler' syndrome, ataxia, diplopia, headaches etc. Start Lamictal 25mg daily for mood stabilization.Pt does not recall prior trials of this medication. Does not recall trials of Depakote, Beatty. Hold fluoxetine 60mg daily, Mirtazapine 15mg qhs given history of mood cycling. Continue clonidine 0.1mg and increase to bid for presumed ADHD, impulsivity. Reviewed information from recent treating providers and past records Encourage participation in unit groups and individual therapy to process grief/loss Assess interest in pursuing psychological testing as outpatient to clarify diagnosis Provide resources for social activities, volunteering to facilitate community engagement. Mental Health & Subst Abuse Tx Psychiatrist Name of Psychiatrist: Cam Levine Psychiatrist's Date Of Appointment With Psychiatric Provider: 09/09/24 Time of Appointment with Psychiatrist: 1:20 pm Therapist Name of Therapist: not established with anyone Therapist's Post Discharge Appointments Primary Care Physician Name Of Family Doctor/PCP: Robert Haider MD Primary Care Contact Information Discharge Discharge Address: [address] [place] [id number] Discharge Plan Discharge Items Patient Disposition: Home - Self-Care Reason For Visit: UNSPECIFIED PSYCHOSIS Discharge Diagnosis: Bipolar Affective Disorder, mixed episode Activity: Resume your previous activity Non-emergency contact: Primary Care Provider and Psychiatrist Call non-emergency contact if: you have any medication questions and your symptoms worsen Follow-up/Referrals: Robert Nolan MD [Primary Care Provider] - Diet: Regular Addtl Attending Provider Instructions: SPECIAL CARE INSTRUCTIONS: 1. Follow through with your scheduled aftercare appointments. If unable to keep an appointment, please call to reschedule. 2. Take your medication only as prescribed. Medication should not be changed or stopped without the approval of your doctor. In the event of worsening symptoms or concerns about side effects, contact your doctor immediately. 3. Utilize new healthy coping skills, anger management skills, and stress management skills learned during your hospitalization. Journal feelings and process them with a support person. Identify stressors or situations that may result in relapse, deterioration or inappropriate behaviors and develop a plan to deal with those issues. 4. If your coping skills are ineffective and you are in crisis, contact your outpatient providers for direction. If unable to reach your providers, please call the [facility] CRISIS LINE AT , go to the [facility] walk-in center at [address] [place] [address] [address], [place], or go to the closest Emergency Room. 5. Avoid alcohol and un-prescribed drugs. 6. You have been provided with the Mental Health Advance Directives Pamphlet for your review. 7. Your condition is stable for discharge to outpatient level of care, but recovery is an ongoing process. Ifthoughts to harm yourself or others return, follow the safety plan developed during your stay. Planning for a safe return home includes securing weapons. Our treatment team recommends weaponsbe removed from the home until your outpatient provider reassesses your progress. In rare cases where the items themselvescannot be removed, guns and ammunitionshould be secured separatelyand keys stored by a reliable personoutside of the home. If you were admitted on an involuntary commitment, the police or other legal authorities may be involved in this process. AFTERCARE APPOINTMENTS: * Please call your insurance company prior to your scheduled appointment to confirm your aftercare providers are covered. Take your insurance information to your appointments. WHO TO CALL AND WHEN: Medical Emergencies: For questions or emergencies related to your hospital stay, please contact the Inpatient Behavioral Health Unit at [phone]. A highwall drill operator is on-call 19/02 for the Behavioral Health Unit for emergencies At any time you feel your situation is an emergency, you may also call 911 immediately. National Crisis Hotline: 291 Pending Studies at Discharge: No Stand-Alone Forms: My [facility] Medications and DC Order Prescriptions: New clonidine HCl 0.1 mg Tablet 0.1 mg PO BID 30 Days Qty: 60 0RF lamotrigine [Lamictal] 25 mg Tablet 25 mg PO QAM 30 Days Qty: 30 0RF olanzapine 10 mg tablet 10 mg PO HS 30 Days Qty: 30 0RF Continued hydroxyzine HCl 50 mg Tablet 50 mg PO DAILY PRN (Reason: Anxiety) Qty: 0 0RF trazodone 50 mg Tablet 50 mg PO HS PRN (Reason: Insomnia) 30 Days Qty: 30 0RF Discharge Orders: Discharge Order (Routine); Ordered 08/31/24 Ordered By: Natalya Alexander Admission Data Admit Date/Time: 08/26/24 18:16 Attending Provider: Natalya Alexander Admit Provider: Lissett Feliz Primary Care Provider: Robert Nolan Other Interventions: Discharge Summary Assessment (RN) Last Done: 08/31/24 08:49 Coding Level of Care Code 04177 D/C day mgmt > 30 min Diagnoses Bipolar 1 disorder, mixed, severe F31.63 Anxiety F41.9 Autism spectrum disorder F84.0 Bipolar 1 disorder, mixed F31.60 LUIS (generalized anxiety disorder) F41.1
== END 2024-08-31 09:55 | disposition home or self-care (01) | DRG 885 ==
LOC: ED 14:21 → 3S 18:16 → SUATTDRO 18:16 → 3S 19:42